=== PATIENT | female | born 1980 | race Caucasian/White ===

== ENCOUNTER 2017-04-23 18:08 | Emergency (ER) | payer MEDICAID ==
[~2017-04-23] VITALS: Ht 162.6 cm; Wt 75.5 kg
[~2017-04-23 18:08] MED LIST: METF850T PO
[2017-04-23 18:49] VITALS: BP 140/71
--- NOTE | 2017-04-23 20:25 | NUR ---
PATIENT AMBULATED TO ER BED 10.
--- NOTE | 2017-04-23 20:26 | NUR ---
PATIENT IS A 37 Y/O FEMALE WHO PRESENTS TO THE ED C/O VAGINAL BLEEDING. PT STATES, "I HAVE BEEN BLEEDING FOR ABOUT 10 DAYS NOW." PT REPORTS 5/10 ACHING BACK PAIN THAT DOES NOT RADIATE. PT DENIES CP, SOB, N/V/D. PT AAOX4, RR EVEN/UNLABORED. PT REPOSITIONED FOR COMFORT, BED IN LOWEST POSITION. ER MD DR. DRISCOLL NOTIFIED. WILL CONTINUE TO MONITOR.
--- NOTE | 2017-04-23 20:26 | NUR ---
Note undone in EDM - 04/23/17 at 2035 by [email or web address] PATIENT IS A 37 Y/O FEMALE WHO PRESENTS TO THE ED C/O VAGINAL BLEEDING. PT STATES, "I AM [age] WEE[age] AND I NOTICED SOME BLEEDING TODAY." PT DENIES PAIN, CP, SOB, N/V/D. PT REPORTS SOME ABD CRAMPING. PT AAOX4, RR EVEN/UNLABORED. PT REPOSITIONED FOR COMFORT, BED IN LOWEST POSITION. ER MD DR. DRISCOLL NOTIFIED. WILL CONTINUE TO MONITOR.
[2017-04-23 21:39] VITALS: BP 135/75
--- NOTE | 2017-04-23 21:39 | NUR ---
Patient discharged with v/s stable. Written and verbal after care instructions given and explained. Patient alert, oriented and verbalized understanding of instructions. Ambulatory with steady gait. All questions addressed prior to discharge. ID band removed. Patient advised to follow up with PMD. Rx of PREMARIN 2.5 MG given. Patient educated on indication of medication including possible reaction and side effects. Opportunity to ask questions provided and answered.
== END 2017-04-23 21:39 | disposition home or self-care (01) ==
LOC: MED 18:08
DX: N94.6 Dysmenorrhea, unspecified (principal); E11.9 Type 2 diabetes mellitus without complications
CPT/HCPCS: 76856; 81002; 81025; 99284

== ENCOUNTER 2018-05-06 16:59 | Emergency (ER) | payer MEDICAID ==
[~2018-05-06] VITALS: Ht 165.1 cm; Wt 80.5 kg
[2018-05-06 17:06] VITALS: BP 130/96
[2018-05-06 17:12] VITALS: BP 130/96
--- NOTE | 2018-05-06 17:14 | NUR ---
BIB WITH C/O COUGH, SORE THROAT, RHINORRHEA, FEVER, UPPER CHEST/BACK PAIN WHEN COUGHING X 3 DAYS. HAS BEEN TAKING OTC COUGH MEDICATIONS, TYLENOL, IBUPROFEN WITH NO RELIEF. DENIES N/V/D; SKIN IS PINK/WARM/DRY; AAOX4 WITH EVEN AND STEADY GAIT; LUNGS CLEAR BL; HR EVEN AND REGULAR; PATIENT STATES PAIN OF 9/10 AT THIS TIME; VSS; PATIENT POSITIONED FOR COMFORT; HOB ELEVATED; BEDRAILS UP X2; BED DOWN. ER MD MADE AWARE OF PT STATUS.
--- NOTE | 2018-05-06 17:43 | NUR ---
PATIENT REQUESTING SOMETHING FOR PAIN. DR RAY INFORMED.
[2018-05-06] MEDS ORDERED: KETOROLAC 60 MG/2 ML VIAL IM ONE (17:45)
--- NOTE | 2018-05-06 19:44 | NUR ---
Patient discharged with v/s stable. Written and verbal after care instructions given and explained. Patient alert, oriented and verbalized understanding of instructions. Ambulatory with steady gait. All questions addressed prior to discharge. ID band removed. Patient advised to follow up with PMD. Rx of PREDNISONE, CIPRO, CORTISPORIN OTIC, MOTRIN AND TAMIFLU given. Patient educated on indication of medication including possible reaction and side effects. Opportunity to ask questions provided and answered.
== END 2018-05-06 19:45 | disposition home or self-care (01) ==
LOC: MED 16:59
DX: J11.1 Influenza due to unidentified influenza virus with other respiratory manifestations (principal); H60.91 Unspecified otitis externa, right ear; N39.0 Urinary tract infection, site not specified; Z90.49 Acquired absence of other specified parts of digestive tract; Z79.84 Long term (current) use of oral hypoglycemic drugs
CPT/HCPCS: 81002; 81025; 96372; 99283; J1885

== ENCOUNTER 2018-10-05 18:38 | Emergency (ER) | payer MEDICAID ==
[~2018-10-05] VITALS: Ht 165.1 cm; Wt 83.1 kg
[2018-10-05 18:42] VITALS: BP 153/97
--- NOTE | 2018-10-05 18:46 | NUR ---
PT AMBULATED TO ER BED 5
--- NOTE | 2018-10-05 18:55 | NUR ---
PT BIB [facility] TO THE ED WITH THE CHIEF C/O RLQ PAIN RADIATING TO BACK SINCE THIS MORNING. GETTING WORSE. DENIES BURNING URINATION OR BLOOD IN URINE. DENIES RECENT FEVER. DENIES N/V/D. STATES PAIN 10/21. HAS NOT TAKEN PAIN MEDS.
--- NOTE | 2018-10-05 19:11 | NUR ---
RECIEVED REPORT FROM ESTRADA EGAN. ASSUMED CARE AT THIS TIME.
--- NOTE | 2018-10-05 19:12 | NUR ---
REPORT GIVEN TO PIANO TEACHER RN FOR CONTINUITY OF CARE
[2018-10-05] MEDS ORDERED: IBUPROFEN 600 MG TAB PO ONE (19:30)
[2018-10-05 19:48] LABS: BASOPHILS % (AUTO) 0.3 % (0.0-2.0); HEMATOCRIT 36.2 % (36-48); HEMOGLOBIN 12.1 g/dL (12.0-16.0); LYMPHOCYTES # (AUTO) 1.9 K/uL (2.5-16.5); LYMPHOCYTES % (AUTO) 26.8 % (20.5-51.1); MEAN CORPUSCULAR HEMOGLOBIN 27 pg (27-31); MEAN CORPUSCULAR HGB CONC 33 g/dL (33-37); MEAN CORPUSCULAR VOLUME 82.2 fL (80-94); MONOCYTES # (AUTO) 0.6 K/uL (0.8-1.0); MONOCYTES % (AUTO) 9.2 % (1.7-9.3); NEUTROPHILS # (AUTO) 4.5 K/uL (1.8-7.7); NEUTROPHILS % (AUTO) 63.7 % (42.2-75.2); PLATELET COUNT (AUTO) 269 K/uL (140-450); RED BLOOD CELL COUNT(AUTO) 4.41 MIL/uL (4.20-5.40); RED CELL DISTRIBUTION WIDTH 15.4 % (11.6-13.7)
--- NOTE | 2018-10-05 19:54 | NUR ---
PT SIGNED SCREENING FOR CT STATING LMP 09/12/18 AND CURRENTLY NOT .
[2018-10-05 19:56] LABS: APPEARANCE,URINE CLEAR (CLEAR); BILIRUBIN,URINE NEGATIVE (NEGATIVE); BLOOD, URINE NEGATIVE (NEGATIVE); COLOR,URINE YELLOW (YELLOW); LEUKOCYTE ESTERASE ,URINE NEGATIVE (NEGATIVE); NITRITE, URINE NEGATIVE (NEGATIVE); PH,URINE 6.5 (5.0-9.0); UGLUCOSE NEGATIVE (NEGATIVE)
[2018-10-05 20:00] LABS: ANION GAP 13.4 (8-16); CREATININE 0.6 mg/dL (0.6-1.3); POTASSIUM 4.4 mmol/L (3.5-5.1)
[2018-10-05 20:05] LABS: ALBUMIN 3.7 g/dL (3.4-5.0); TOTAL BILIRUBIN 0.4 mg/dL (0.0-1.0)
--- NOTE | 2018-10-05 20:12 | NUR ---
PT TAKEN TO CT
[2018-10-05 21:15] VITALS: BP 151/77
--- NOTE | 2018-10-05 21:15 | NUR ---
PT C/O 10/21 PAIN. PAIN UNRESOLVED WITH MEDICATION. DR. RAWLS NOTIFIED.
[2018-10-05] MEDS ORDERED: MORPHINE SULFATE 4 MG/ML SYR IM ONE (21:20)
--- NOTE | 2018-10-05 21:30 | NUR ---
Ultrasound at bedside.
== END 2018-10-05 22:15 | disposition home or self-care (01) ==
LOC: MED 18:38
DX: K59.00 Constipation, unspecified (principal); E11.9 Type 2 diabetes mellitus without complications; Z90.49 Acquired absence of other specified parts of digestive tract; Z79.84 Long term (current) use of oral hypoglycemic drugs
CPT/HCPCS: 36415; 74176; 76856; 80053; 81003; 81025; 83690; 85025; 96372; 99284; J2270; Q0092

== ENCOUNTER 2018-11-22 11:27 | Emergency (ER) | payer MEDICAID ==
[~2018-11-22] VITALS: Ht 165.1 cm; Wt 83.6 kg
[2018-11-22 11:30] VITALS: BP 126/95
[2018-11-22] MEDS ORDERED: IBUP-2213 PO (11:46)
[2018-11-22] MEDS ORDERED: KETOROLAC 30 MG/ML VIAL IM ONE (11:50)
[2018-11-22] MEDS ORDERED: CYCLOBENZAPRINE 10 MG TAB PO ONE (11:50)
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
--- NOTE | 2018-11-22 13:03 | NUR ---
Patient appears to be resting in bed. Vital Signs within normal limits. Respirations even and unlabored.
[2018-11-22 14:10] VITALS: BP 126/95
--- NOTE | 2018-11-22 14:12 | NUR ---
Patient discharged with v/s stable. Written and verbal after care instructions given and explained. Patient alert, oriented and verbalized understanding of instructions. Ambulatory with steady gait. All questions addressed prior to discharge. ID band removed. Patient advised to follow up with PMD. Rx of IBUPROFEN 800MG AND FLEXERIL 10 MG given. Patient educated on indication of medication including possible reaction and side effects. Opportunity to ask questions provided and answered.
== END 2018-11-22 14:10 | disposition home or self-care (01) ==
LOC: MED 11:27
DX: S16.1XXA Strain of muscle, fascia and tendon at neck level, initial encounter (principal); S50.02XA Contusion of left elbow, initial encounter; E11.9 Type 2 diabetes mellitus without complications; Z79.899 Other long term (current) drug therapy; V86.99XA Unspecified occupant of other special all-terrain or other off-road motor vehicle injured in nontraffic accident, initial encounter; Y93.89 Activity, other specified; Y92.89 Other specified places as the place of occurrence of the external cause; Y99.8 Other external cause status
CPT/HCPCS: 72050; 73080; 81002; 81025; 96372; 99283; J1885

== ENCOUNTER 2019-04-16 23:08 | Emergency (ER) | payer MEDICAID ==
[~2019-04-16] VITALS: Ht 165.1 cm; Wt 80.7 kg
[~2019-04-16 23:08] MED LIST changes: +IBUP-2213 PO; -METF850T PO
[2019-04-16 23:10] VITALS: BP 114/90
--- NOTE | 2019-04-17 01:28 | NUR ---
PT TAKEN TO ER BED 01
--- NOTE | 2019-04-17 01:30 | NUR ---
39 YEAR OLD FEMALE COMPLAINS OF 10/10 DULL CHEST PAIN X 3 HOURS. PATIENT STATES THAT THE CHEST PAIN RADIATES TO LEFT SHOULDER/BACK. PATIENT STATES NO NAUSEA, VOMITTING, OR DIARRHEA. PATIENT DENIES SHORTNESS OF BREATHE. PATIENT BREATHING EVEN AND UNLABORED, SKIN WARM AND DRY. BED IN LOWEST POSITION, LOCKED, BED RAIL UPX1. PMH - DENIES MEDICATIONS - IBUPROFEN ALLERGIES - NKA
--- NOTE | 2019-04-17 01:55 | NUR ---
PATIENT ALERT AND ORIENTED, BREATHING EVEN AND UNLABORED
[2019-04-17] MEDS ORDERED: NACL 0.9% 500 ML IV ONE (02:05)
[2019-04-17] MEDS ORDERED: PANTOPRAZOLE 40 MG INJ VIAL IVP ONE (02:05)
[2019-04-17] MEDS ORDERED: METOCLOPRAMIDE 10 MG/2 ML INJ VIAL IVP ONE (02:05)
--- NOTE | 2019-04-17 02:20 | NUR ---
PATIENT DOES NOT WANT VS TAKEN AND WANTS TO LEAVE, PATIENT STATES THAT SHE WANTS TO GO HOME TO SEE THAT HER CHILDREN ARE OKAY.
--- NOTE | 2019-04-17 02:22 | NUR ---
Patient does not wish to proceed with medical care recommended by DR LOREDO. Patient given information related to possible complications, up to and including , which could occur as a result of leaving hospital at this time. Patient verbalizes understanding of risks involved leaving against medical advice. Patient has signed AMA form.
--- NOTE | 2019-04-17 02:22 | NUR ---
MEDICATIONS NOT GIVEN DUE TO PATIENT LEAVING AGAINST MEDICAL ADVICE WITH
== END 2019-04-17 02:22 | disposition left against medical advice (07) ==
LOC: MED 23:50
DX: R07.89 Other chest pain (principal); Z79.899 Other long term (current) drug therapy
CPT/HCPCS: 96374; 96375; 99283

== ENCOUNTER 2021-09-27 20:13 | Emergency (ER) | payer MEDICAID ==
[~2021-09-27] VITALS: Ht 162.6 cm; Wt 78.9 kg
[2021-09-27 20:17] VITALS: BP 109/44
--- NOTE | 2021-09-27 20:27 | NUR ---
PT TAKEN TO BED 6
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
--- NOTE | 2021-09-27 22:17 | NUR ---
Dr. Colon examining patient.
[2021-09-27] MEDS ORDERED: BACITRACIN OINT 500 UNITS/GM PKT TP ONE (22:20)
[2021-09-27] MEDS ORDERED: LIDOCAINE/PRILOCAINE 2.5% 5 GM TUBE TP ONE (22:20)
[2021-09-27] MEDS ORDERED: ACET-10509 PO (23:39)
[2021-09-27] MEDS ORDERED: CEPH-588 PO (23:39)
[2021-09-28] VITALS: BP 112/56
--- NOTE | 2021-09-28 | NUR ---
Patient discharged with v/s stable. Written and verbal after care instructions given and explained. Patient alert, oriented and verbalized understanding of instructions. Ambulatory with steady gait. All questions addressed prior to discharge. ID band removed. Patient advised to follow up with PMD. Rx of KEFLEX AND TYLENOL given. Opportunity to ask questions provided and answered.
--- NOTE | 2021-09-28 00:21 | NUR ---
The patient's care was reviewed and supervised by Jeanie Browne RN.
== END 2021-09-28 | disposition home or self-care (01) ==
LOC: MED 20:13
DX: S91.202A Unspecified open wound of left great toe with damage to nail, initial encounter (principal); Z48.02 Encounter for removal of sutures; Z79.899 Other long term (current) drug therapy; Z90.49 Acquired absence of other specified parts of digestive tract; X58.XXXA Exposure to other specified factors, initial encounter; Y93.89 Activity, other specified; Y92.89 Other specified places as the place of occurrence of the external cause; Y99.8 Other external cause status
CPT/HCPCS: 99285

== ENCOUNTER 2023-09-04 18:42 | Emergency (ER) | payer MEDICAID, OTHER ==
[~2023-09-04] VITALS: Ht 165.1 cm; Wt 88.0 kg
[~2023-09-04 18:42] MED LIST changes: +ACET-10509 PO; +CEPH-588 PO
[2023-09-04 18:52] VITALS: BP 133/67; PULSE 85; RESP 18; TEMP 97; O2SAT 100
[2023-09-04] MEDS ORDERED: IBUP-2213 PO (19:20)
[2023-09-04] MEDS ORDERED: PRE15L PO (19:20)
[2023-09-04] MEDS ORDERED: LID5T TP (19:21)
[2023-09-04] MEDS: KETOROLAC 30 MG/ML VIAL IM ONE (19:24)
== END 2023-09-04 19:26 | disposition home or self-care (01) ==
LOC: MED 18:42
DX: M06.9 Rheumatoid arthritis, unspecified (principal); Z79.1 Long term (current) use of non-steroidal anti-inflammatories (NSAID); Z79.899 Other long term (current) drug therapy
CPT/HCPCS: 81025; 96372; 99283; J1885